=== PATIENT | male | born 1980 | race Two or more races ===

== ENCOUNTER 2019-08-01 20:59 | Emergency (ER) | payer OTHER ==
[2019-08-01] MEDS ORDERED: Acetaminophen/HYDROcodone 325-5 MG Tab PO ONE (21:00)
[2019-08-01] MEDS: Morphine 10 MG/ML SDV IM ONE (21:47)
--- NOTE | 2019-08-02 00:37 | ER ---
DATE SEEN: 08/01/2019 REASON FOR VISIT: Injury of the right calf. HISTORY OF PRESENT ILLNESS: This is a 39-year-old male from [facility]. He was pushing a heavy load when he felt a pop and sudden jolting pain on the right calf. Since that time, he is unable to bear any weight and it is swollen. Severe pain which is worsened with any weightbearing. PAST MEDICAL HISTORY: Hypertension. REVIEW OF SYSTEMS: He denies any shortness of breath or other injuries. MEDICATIONS: Please see the nurse's notes. PHYSICAL EXAMINATION: GENERAL: He is not in distress. He is anxious. VITAL SIGNS: He has a blood pressure of 200/100. Temperature is 97.9. EXTREMITIES: Right calf revealed marked tenderness of the calf. Positive Lott sign and normal peripheral pulse at the dorsalis pedis. IMPRESSION: Right calf muscle injury. PLAN: Morphine 10 mg IM. He will go home on hydrocodone. I advised him to weight bear, ice it, rest, elevate, and follow up PCP on Saturday before returning to work. /[id number] NONI/ALEXUS
== END 2019-08-01 21:35 | disposition home or self-care (01) ==
LOC: FB.ED 20:59
DX: S86.901A Unspecified injury of unspecified muscle(s) and tendon(s) at lower leg level, right leg, initial encounter (principal); I10 Essential (primary) hypertension; X50.0XXA Overexertion from strenuous movement or load, initial encounter; Y93.89 Activity, other specified
CPT/HCPCS: 96372; 99000; 99283; A9270-GY; J2270